=== PATIENT | female | born 1980 | race African-American/Black ===

== ENCOUNTER 2019-04-05 19:08 | Inpatient (IN) ==
[2019-04-05 19:58] LABS: Apearance,Urine CLEAR (Clear); Bacteria,Urine Many /HPF (Few); Bilirubin,Urine Negative (Negative); Blood, Urine Negative (Negative); Glucose,Urine (UA) Negative (Negative); Ketones,Urine 5 mg/dL (Negative); Mucus,Urine Many /LPF (Occasional); Nitrite,Urine Positive (Negative); Protein,Urine 30 MG/DL; Squamous Epithelial Cell,Urine Occasional /HPF (0-10); Urine Color Amber (Yellow); Urine Specific Gravity 1.026 (1.001-1.035); WBC,Urine 17 /HPF (0-6)
[2019-04-05] MEDS ORDERED: LACTATED RINGERS 500 ML IV PRN (21:10)
[2019-04-05] MEDS ORDERED: BUTORPHANOL 2 MG/ML VIAL IV PRN (21:10)
[2019-04-05] MEDS ORDERED: ONDANSETRON 4 MG/2 ML VIAL IV PRN (21:10)
[2019-04-05] MEDS ORDERED: MEPERIDINE 50 MG/1 ML VIAL IV PRN (21:10)
[2019-04-05 21:47] LABS: Basophils % 0.2 % (0.0-0.8); Eosinophils # 0.1 10*3/uL (0.0-0.87); Eosinophils % 1.2 % (0.00-10.9); Hemoglobin 8.7 GM/DL (12.0-16.0); Immature Granulocytes % 0.5 %; Immature Granulocytes Absolute 0.02 #; Lymphocytes # 1.2 10*3/uL (1.4-4.0); Lymphocytes % 30.4 % (21.3-54.2); Mean Corpuscular HGB Conc 32.2 GM/DL (32-36); Mean Corpuscular Volume 97.8 FL (87-102); Mean Platelet Volume 10.3 FL (9.6-12.0); Monocytes % 10.4 % (1.7-12.7); Neutrophils % 57.3 % (38.7-73.9); Platelet Count 212 T/CUMM (130-400); Red Blood Count 2.76 MC/CUMM (3.8-5.5); Red Cell Distribution Width 13.8 % (9.3-17.3); White Blood Count 4.1 T/CUMM (4-12)
[2019-04-06] MEDS: LACTATED RINGERS 1,000 ML IV SCH ×3 (05:45→09:06)
[2019-04-06] MEDS ORDERED: OXYTOCIN/LR 20 UNIT/1,000 ML BAG IV SCH (06:00)
[2019-04-06] MEDS ORDERED: AMPICILLIN INJ 2,000 MG in SODIUM CHLORIDE 0.9% 100 ML IV ONE (06:00)
[2019-04-06] MEDS ORDERED: PROMETHAZINE 25 MG/1 ML VIAL IM ONE (07:09)
[2019-04-06] MEDS ORDERED: FAMOTIDINE 20 MG/2 ML VIAL IV ONE (07:09)
[2019-04-06] MEDS ORDERED: NALOXONE 0.4 MG/ML VIAL IV PRN (07:09)
[2019-04-06] MEDS ORDERED: CITRIC ACID/SODIUM CITRATE 30 ML UDCUP PO ONE (07:09)
[2019-04-06] MEDS ORDERED: hydrOXYzine HCL 25 MG/1 ML VIAL IM PRN (07:09)
[2019-04-06] MEDS ORDERED: ePHEDrine 50 MG/ML AMP IV PRN (07:09)
[2019-04-06] MEDS ORDERED: diphenhydrAMINE 50 MG/1 ML VIAL IV PRN ×2 (07:09)
[2019-04-06] MEDS ORDERED: fentaNYL 2 MCG/ROPIV 0.2% EPID 100 ML EPIDURAL SCH (07:30)
[2019-04-06] MEDS ORDERED: miSOPROStol 200 MCG TABLET ONE (08:53)
[2019-04-06] MEDS ORDERED: METHYLERGONOVINE 0.2 MG/1 ML AMP ONE ×2 (08:53→14:05)
[2019-04-06] MEDS ORDERED: CARBOPROST TROMETHAMINE 250 MCG/ML AMP IM ONE ×2 (08:54→14:06)
[2019-04-06] MEDS ORDERED: LACTATED RINGERS IV ONE (09:00)
[2019-04-06] MEDS ORDERED: OXYTOCIN IV ONE (09:00)
[2019-04-06] MEDS ORDERED: AMPICILLIN INJ 1,000 MG in SODIUM CHLORIDE 0.9% 100 ML IV SCH (10:00)
[2019-04-06 11:07] LABS: Apearance,Urine CLEAR (Clear); Bilirubin,Urine Negative (Negative); Blood, Urine Negative (Negative); Glucose,Urine (UA) Negative (Negative); Ketones,Urine 20 mg/dL (Negative); Mucus,Urine Few /LPF (Occasional); Nitrite,Urine Negative (Negative); Protein,Urine Negative; RBC,Urine 7 /HPF (0-4); Squamous Epithelial Cell,Urine Occasional /HPF (0-10); Urine Color Amber (Yellow); Urine Specific Gravity 1.021 (1.001-1.035); WBC,Urine 189 /HPF (0-6)
[2019-04-06 14:29] LABS: Cord Venous Blood HCO3 24.7 MMOL/L; Cord Venous Blood PCO2 42.4 MMHG; Cord Venous Blood PO2 40.6
[2019-04-06] MEDS ORDERED: BISACODYL 10 MG SUPP RECTAL PRN (14:55)
[2019-04-06] MEDS ORDERED: ACETAMINOPHEN 325 MG TABLET PO PRN (14:55)
[2019-04-06] MEDS ORDERED: MAGNESIUM HYDROXIDE SUSP 30 ML UDCUP PO PRN (14:55)
[2019-04-06] MEDS ORDERED: LACTATED RINGERS 1,000 ML IV SCH (15:00)
[2019-04-06] MEDS ORDERED: BENZOCAINE 20%/MENTHOL 0.5% SPRAY 56 GM CAN TOP PRN (16:05)
[2019-04-06] MEDS: IBUPROFEN 800 MG TABLET PO PRN (17:11)
[2019-04-06] MEDS: DOCUSATE SODIUM 100 MG CAPSULE PO SCH (20:56)
[2019-04-07] MEDS: IBUPROFEN 800 MG TABLET PO PRN ×2 (03:53→12:20)
[2019-04-07 05:47] LABS: Basophils % 0.1 % (0.0-0.8); Eosinophils # 0.1 10*3/uL (0.0-0.87); Eosinophils % 1.1 % (0.00-10.9); Hematocrit 28.4 VOL% (35.7-47.0); Hemoglobin 9.2 GM/DL (12.0-16.0); Immature Granulocytes % 0.4 %; Immature Granulocytes Absolute 0.03 #; Lymphocytes # 1.8 10*3/uL (1.4-4.0); Lymphocytes % 23.5 % (21.3-54.2); Mean Corpuscular HGB Conc 32.4 GM/DL (32-36); Mean Corpuscular Volume 97.6 FL (87-102); Mean Platelet Volume 10.5 FL (9.6-12.0); Monocytes % 10.4 % (1.7-12.7); Neutrophils % 64.5 % (38.7-73.9); Platelet Count 235 T/CUMM (130-400); Red Blood Count 2.91 MC/CUMM (3.8-5.5); Red Cell Distribution Width 13.6 % (9.3-17.3); White Blood Count 7.6 T/CUMM (4-12)
[2019-04-07] MEDS: MULTIVITAMIN (PRENATAL) TABLET PO SCH (09:03)
[2019-04-07] MEDS: DOCUSATE SODIUM 100 MG CAPSULE PO SCH ×2 (09:03→19:31)
[2019-04-08 08:15] VITALS: BP 118/68
[2019-04-08] MEDS: DOCUSATE SODIUM 100 MG CAPSULE PO SCH (08:36)
[2019-04-08] MEDS: MULTIVITAMIN (PRENATAL) TABLET PO SCH (08:36)
== END 2019-04-08 11:20 | disposition home or self-care (01) | DRG 560 ==
LOC: N.LDOUT 19:08 → N.LD 19:16 → N.OB 04-07 15:00
PROVIDERS: ADMIT Obstetrics & Gynecology; ATTEND Obstetrics & Gynecology

== ENCOUNTER 2021-01-08 01:58 | Inpatient (IN) ==
[2021-01-08] MEDS ORDERED: ONDANSETRON 4 MG/2 ML VIAL IV PRN ×2 (02:23→18:49)
[2021-01-08] MEDS ORDERED: LACTATED RINGERS 1,000 ML IV ONE (02:23)
[2021-01-08] MEDS ORDERED: MEPERIDINE 50 MG/1 ML VIAL IV PRN (02:23)
[2021-01-08] MEDS ORDERED: LACTATED RINGERS 1,000 ML IV SCH ×2 (02:30→19:00)
[2021-01-08 02:45] LABS: Basophils % 0.2 % (0.0-0.8); Eosinophils % 0.8 % (0.00-10.9); Hematocrit 31.3 VOL% (35.7-47.0); Hemoglobin 10.2 GM/DL (12.0-16.0); Immature Granulocytes % 0.8 %; Immature Granulocytes Absolute 0.04 #; Lymphocytes # 1.6 10*3/uL (1.4-4.0); Mean Corpuscular HGB Conc 32.6 GM/DL (32-36); Mean Corpuscular Volume 97.8 FL (87-102); Mean Platelet Volume 10.3 FL (9.6-12.0); Monocytes % 7.7 % (1.7-12.7); Neutrophils % 60.5 % (38.7-73.9); Platelet Count 242 T/CUMM (130-400); Red Cell Distribution Width 13.2 % (9.3-17.3); White Blood Count 5.3 T/CUMM (4-12)
[2021-01-08 03:13] LABS: Albumin 2.8 G/DL (3.4-5.0); Bilirubin,Total 0.7 MG/DL (0.2-1.0); Calcium 8.3 MG/DL (8.5-10.1); Osmolality,Calculated 271.7 MOS/KG (273-304); Potassium 3.6 MMOL/L (3.5-5.1); Total Protein 7.3 G/DL (6.4-8.2)
[2021-01-08] MEDS ORDERED: NALOXONE 0.4 MG/ML VIAL IV PRN (06:06)
[2021-01-08] MEDS ORDERED: PROMETHAZINE 25 MG/1 ML VIAL IM ONE (06:06)
[2021-01-08] MEDS ORDERED: ePHEDrine 50 MG/ML VIAL IV PRN (06:06)
[2021-01-08] MEDS ORDERED: diphenhydrAMINE 50 MG/1 ML VIAL IV PRN ×2 (06:06)
[2021-01-08] MEDS ORDERED: CITRIC ACID/SODIUM CITRATE 30 ML UDCUP PO ONE (06:11)
[2021-01-08] MEDS ORDERED: FAMOTIDINE 20 MG/2 ML VIAL IV ONE (06:13)
[2021-01-08] MEDS ORDERED: fentaNYL 2 MCG/ROPIV 0.2% EPID 100 ML EPIDURAL SCH (06:30)
[2021-01-08] MEDS ORDERED: METHYLERGONOVINE 0.2 MG/1 ML AMP ONE (07:15)
[2021-01-08] MEDS ORDERED: TRANEXAMIC ACID 1,000 MG/10 ML VIAL ONE (07:15)
[2021-01-08] MEDS ORDERED: miSOPROStoL 200 MCG TABLET ONE (07:15)
[2021-01-08] MEDS ORDERED: CARBOPROST TROMETHAMINE 250 MCG/ML AMP IM ONE (07:15)
[2021-01-08] MEDS ORDERED: OXYTOCIN/LR 20 UNIT/1,000 ML BAG IV ONE ×2 (07:21→15:01)
[2021-01-08] MEDS ORDERED: OXYTOCIN/LR 20 UNIT/1,000 ML BAG IV SCH (08:50)
[2021-01-08 11:25] LABS: Cord Venous Blood PCO2 54.2 MMHG; Cord Venous Blood PO2 34.1
[2021-01-08] MEDS ORDERED: RHO(D) IMMUNE GLOBULIN 300 MCG SYRINGE IM ONE (16:05)
[2021-01-08] MEDS ORDERED: ACETAMINOPHEN 325 MG TABLET PO PRN ×2 (16:05→18:49)
[2021-01-08] MEDS ORDERED: BISACODYL 10 MG SUPP RECTAL PRN (16:05)
[2021-01-08] MEDS ORDERED: DIPH/TET/ACEL PERT BOOSTER VACCINE 0.5 ML VIAL IM ONE (16:05)
[2021-01-08] MEDS ORDERED: MEASLES/MUMPS/RUBELLA VACCINE 0.5 ML VIAL SUBCUT ONE (16:05)
[2021-01-08] MEDS ORDERED: LANOLIN 50% CREAM 0.3 OZ TUBE TOP PRN (16:05)
[2021-01-08] MEDS ORDERED: HYDROCORTISONE 2.5% RECTAL CREAM 30 GM TUBE TOP PRN (16:05)
[2021-01-08] MEDS ORDERED: WITCH HAZEL PADS 100/JAR TOP PRN (16:05)
[2021-01-08] MEDS ORDERED: BENZOCAINE 20%/MENTHOL 0.5% SPRAY 56 GM CAN TOP PRN (16:05)
[2021-01-08] MEDS: IBUPROFEN 800 MG TABLET PO PRN (17:49)
[2021-01-08] MEDS: DOCUSATE SODIUM 100 MG CAPSULE PO SCH (20:39)
[2021-01-09] MEDS: IBUPROFEN 800 MG TABLET PO PRN ×2 (05:13→12:11)
[2021-01-09 05:37] LABS: Eosinophils % 0.6 % (0.00-10.9); Hematocrit 30.7 VOL% (35.7-47.0); Hemoglobin 10.2 GM/DL (12.0-16.0); Immature Granulocytes % 0.4 %; Immature Granulocytes Absolute 0.03 #; Lymphocytes # 1.1 10*3/uL (1.4-4.0); Lymphocytes % 16.3 % (21.3-54.2); Mean Corpuscular HGB Conc 33.2 GM/DL (32-36); Mean Corpuscular Volume 97.8 FL (87-102); Mean Platelet Volume 10.6 FL (9.6-12.0); Monocytes % 8.5 % (1.7-12.7); Neutrophils % 74.2 % (38.7-73.9); Platelet Count 222 T/CUMM (130-400); Red Blood Count 3.14 MC/CUMM (3.8-5.5); Red Cell Distribution Width 13.2 % (9.3-17.3); White Blood Count 6.9 T/CUMM (4-12)
[2021-01-09] MEDS: IRON (CARBONYL)/VIT C/B12/FA TABLET PO SCH (12:11)
[2021-01-09] MEDS: DOCUSATE SODIUM 100 MG CAPSULE PO SCH (12:12)
[2021-01-09] MEDS: MULTIVITAMIN (PRENATAL) TABLET PO SCH (12:12)
[2021-01-09] MEDS ORDERED: ACETAMINOPHEN/CODEINE 300-30 MG TABLET PO PRN (16:00)
[2021-01-10] MEDS: IBUPROFEN 800 MG TABLET PO PRN (00:19)
[2021-01-10] MEDS: DOCUSATE SODIUM 100 MG CAPSULE PO SCH ×2 (02:37→08:45)
[2021-01-10 07:42] VITALS: BP 133/81
[2021-01-10] MEDS: IRON (CARBONYL)/VIT C/B12/FA TABLET PO SCH (08:46)
[2021-01-10] MEDS: MULTIVITAMIN (PRENATAL) TABLET PO SCH (08:46)
== END 2021-01-10 14:00 | disposition home or self-care (01) | DRG 560 ==
LOC: N.LD → OBSVTOIN 01:58 → N.LD 02:50 → N.OB 15:30
PROVIDERS: ADMIT Obstetrics & Gynecology; ATTEND Obstetrics & Gynecology

== ENCOUNTER 2022-04-06 03:56 | Inpatient (IN) ==
[2022-04-06] MEDS ORDERED: LACTATED RINGERS 250 ML IV ONE (04:11)
[2022-04-06] MEDS ORDERED: METHYLERGONOVINE 0.2 MG/1 ML AMP IM PRN (04:11)
[2022-04-06] MEDS ORDERED: TRANEXAMIC ACID 1,000 MG in SODIUM CHLORIDE 0.9% 100 ML IV PRN (04:11)
[2022-04-06] MEDS ORDERED: LACTATED RINGERS 500 ML IV PRN (04:11)
[2022-04-06] MEDS ORDERED: miSOPROStoL 200 MCG TABLET RECTAL PRN (04:11)
[2022-04-06] MEDS ORDERED: MEPERIDINE 50 MG/1 ML VIAL IV PRN (04:11)
[2022-04-06] MEDS ORDERED: OXYTOCIN/LR 20 UNIT/1,000 ML BAG IV ONE ×2 (04:11→15:44)
[2022-04-06] MEDS ORDERED: LIDOCAINE 1% 50 ML VIAL MISC INJ ONE (04:11)
[2022-04-06] MEDS ORDERED: CARBOPROST TROMETHAMINE 250 MCG/ML AMP IM PRN (04:11)
[2022-04-06] MEDS ORDERED: ONDANSETRON 4 MG/2 ML VIAL IV PRN (04:11)
[2022-04-06] MEDS ORDERED: BUTORPHANOL 2 MG/ML VIAL IV PRN (04:11)
[2022-04-06] MEDS ORDERED: BUTORPHANOL 1 MG/ML VIAL IV PRN (04:11)
[2022-04-06] MEDS ORDERED: OXYTOCIN/LR 30 UNIT/1,000 ML BAG IV ONE (04:17)
[2022-04-06] MEDS ORDERED: OXYTOCIN/LR 20 UNIT/1,000 ML BAG IV SCH (04:30)
[2022-04-06 05:39] LABS: Basophils % 0.2 % (0.0-0.8); Eosinophils % 0.9 % (0.00-10.9); Hematocrit 28.3 VOL% (35.7-47.0); Hemoglobin 9.2 GM/DL (12.0-16.0); Immature Granulocytes % 0.2 %; Immature Granulocytes Absolute 0.01 #; Lymphocytes # 1.2 10*3/uL (1.4-4.0); Lymphocytes % 28.9 % (21.3-54.2); Mean Corpuscular HGB Conc 32.5 GM/DL (32-36); Mean Corpuscular Volume 97.9 FL (87-102); Mean Platelet Volume 10.4 FL (9.6-12.0); Monocytes # 0.4 10*3/uL (0.11-0.8); Monocytes % 10.1 % (1.7-12.7); Neutrophils % 59.7 % (38.7-73.9); Platelet Count 252 T/CUMM (130-400); Red Blood Count 2.89 MC/CUMM (3.8-5.5); Red Cell Distribution Width 13.3 % (9.3-17.3); White Blood Count 4.3 T/CUMM (4-12)
[2022-04-06] MEDS: LACTATED RINGERS 1,000 ML IV SCH ×2 (06:02→09:59)
[2022-04-06] MEDS ORDERED: FAMOTIDINE 20 MG/2 ML VIAL IV ONE (07:39)
[2022-04-06] MEDS ORDERED: NALOXONE 0.4 MG/ML VIAL IV PRN (07:39)
[2022-04-06] MEDS ORDERED: ePHEDrine 50 MG/ML VIAL IV PRN (07:39)
[2022-04-06] MEDS ORDERED: CITRIC ACID/SODIUM CITRATE 30 ML UDCUP PO ONE (07:39)
[2022-04-06] MEDS ORDERED: fentaNYL 2 MCG/ROPIV 0.2% EPID 100 ML EPIDURAL SCH (08:00)
[2022-04-06 09:08] LABS: Mucus,Urine Occasional /LPF (Occasional); RBC,Urine 1 /HPF (0-4); Squamous Epithelial Cell,Urine Occasional /HPF (0-10)
[2022-04-06 09:11] LABS: Bilirubin,Urine Negative (Negative); Blood, Urine Negative (Negative); Glucose,Urine (UA) Negative (Negative); Ketones,Urine Negative (Negative); Nitrite,Urine Negative (Negative); Protein,Urine Negative (Negative); Urine Appearance Clear (Clear); Urine Color Yellow (Yellow)
[2022-04-06] MEDS ORDERED: SODIUM CHLORIDE 0.9% 0 ML IV ONE (09:19)
[2022-04-06 13:53] LABS: Cord Arterial Blood HCO3 21.2 MMOL/L
[2022-04-06 13:56] LABS: Cord Venous Blood HCO3 23.3 MMOL/L; Cord Venous Blood PO2 28.8
[2022-04-06] MEDS ORDERED: RHO(D) IMMUNE GLOBULIN 300 MCG SYRINGE IM ONE (15:44)
[2022-04-06] MEDS ORDERED: MEASLES/MUMPS/RUBELLA VACCINE 0.5 ML VIAL SUBCUT ONE (15:44)
[2022-04-06] MEDS ORDERED: BENZOCAINE 20%/MENTHOL 0.5% SPRAY 56 GM CAN TOP PRN (15:44)
[2022-04-06] MEDS ORDERED: DIPH/TET/ACEL PERT BOOSTER VACCINE 0.5 ML VIAL IM ONE (15:44)
[2022-04-06] MEDS ORDERED: HYDROCORTISONE 2.5% RECTAL CREAM 30 GM TUBE TOP PRN (15:44)
[2022-04-06] MEDS ORDERED: BISACODYL 10 MG SUPP RECTAL PRN (15:44)
[2022-04-06] MEDS ORDERED: WITCH HAZEL PADS 100/JAR TOP PRN (15:44)
[2022-04-06] MEDS ORDERED: oxyCODONE/ACETAMINOPHEN 5-325 MG TABLET PO PRN (15:44)
[2022-04-06] MEDS ORDERED: LANOLIN 50% CREAM 0.3 OZ TUBE TOP PRN (15:44)
[2022-04-06] MEDS ORDERED: ACETAMINOPHEN 325 MG TABLET PO PRN (15:44)
[2022-04-06] MEDS: IBUPROFEN 800 MG TABLET PO PRN (18:09)
[2022-04-06] MEDS: oxyCODONE/ACETAMINOPHEN 5-325 MG TABLET PO PRN (18:23)
[2022-04-06] MEDS: DOCUSATE SODIUM 100 MG CAPSULE PO SCH (20:28)
[2022-04-07] MEDS: IBUPROFEN 800 MG TABLET PO PRN ×3 (03:19→19:49)
[2022-04-07] MEDS: oxyCODONE/ACETAMINOPHEN 5-325 MG TABLET PO PRN ×3 (03:20→19:50)
[2022-04-07 05:01] LABS: Basophils % 0.2 % (0.0-0.8); Eosinophils % 0.7 % (0.00-10.9); Hematocrit 27.3 VOL% (35.7-47.0); Hemoglobin 8.9 GM/DL (12.0-16.0); Immature Granulocytes % 0.5 %; Immature Granulocytes Absolute 0.03 #; Lymphocytes # 1.3 10*3/uL (1.4-4.0); Lymphocytes % 22.9 % (21.3-54.2); Mean Corpuscular HGB Conc 32.6 GM/DL (32-36); Mean Corpuscular Volume 98.2 FL (87-102); Mean Platelet Volume 10.7 FL (9.6-12.0); Monocytes # 0.5 10*3/uL (0.11-0.8); Monocytes % 8.6 % (1.7-12.7); Neutrophils % 67.1 % (38.7-73.9); Platelet Count 231 T/CUMM (130-400); Red Blood Count 2.78 MC/CUMM (3.8-5.5); Red Cell Distribution Width 13.2 % (9.3-17.3); White Blood Count 5.6 T/CUMM (4-12)
[2022-04-07] MEDS: DOCUSATE SODIUM 100 MG CAPSULE PO SCH ×3 (09:13→21:23)
[2022-04-07] MEDS ORDERED: FERROUS SULFATE 325 MG TABLET PO SCH (17:00)
[2022-04-08] MEDS: oxyCODONE/ACETAMINOPHEN 5-325 MG TABLET PO PRN (05:24)
[2022-04-08] MEDS: IBUPROFEN 800 MG TABLET PO PRN (05:25)
[2022-04-08 08:48] VITALS: BP 132/63
[2022-04-08] MEDS: DOCUSATE SODIUM 100 MG CAPSULE PO SCH (09:05)
== END 2022-04-08 12:53 | disposition home or self-care (01) | DRG 560 ==
LOC: N.LDOUT 03:56 → N.LD 03:59 → N.OB 15:35
PROVIDERS: ADMIT Obstetrics & Gynecology; ATTEND Obstetrics & Gynecology